=== PATIENT | female | born 1990 | race African-American/Black ===

== ENCOUNTER 2022-05-23 18:21 | Emergency (ER) | payer MEDICAID, OTHER ==
[~2022-05-23] VITALS: Ht 154.9 cm; Wt 53.1 kg
[2022-05-23] MEDS ORDERED: IBUPROFEN 800 MG TAB PO ONE (20:15)
[2022-05-23 22:06] VITALS: BP 129/87
== END 2022-05-23 22:06 | disposition home or self-care (01) ==
LOC: EDBD 18:21 → ER 18:27
DX: M25.562 Pain in left knee (principal); M25.561 Pain in right knee; M25.511 Pain in right shoulder; F17.210 Nicotine dependence, cigarettes, uncomplicated; V49.9XXA Car occupant (driver) (passenger) injured in unspecified traffic accident, initial encounter; Y93.89 Activity, other specified; Y92.89 Other specified places as the place of occurrence of the external cause; Y99.8 Other external cause status
CPT/HCPCS: 73030; 73560